=== PATIENT | female | born 1930 | race Caucasian/White ===

== ENCOUNTER 2018-09-20 16:38 | Inpatient (IN) | payer BC ==
[~2018-09-20] VITALS: Ht 162.6 cm; Wt 73.6 kg
[2018-09-20 16:43] VITALS: BP_SYST 140
--- NOTE | 2018-09-20 16:50 | NUR ---
Placed in room 01 . Placed on radiation monitor, blood pressure machine and pulse oximeter. To gown for exam. Side rails up.
--- NOTE | 2018-09-20 16:55 | NUR ---
Pt brought by family member, [email or web address], pt was sent from PCP for abnormal labs(BNP) , pt c/o lightheadache, skin pink and warm, cap refill <3, respirations even and unlabored, pr denies chest pain or other symptoms. Addendum: 09/20/18 at 1725 by [email or web address] Amendment undone in EDM - 09/20/18 at 1727 by [email or web address] Per paramedics pt had low BP prior to arrival and one episode of confusion, BP 137/58 at this time,pt KokoOx3, at this time.
[2018-09-20] MEDS ORDERED: LEVO125T8 PO (17:07)
[2018-09-20] MEDS ORDERED: LISI-209 PO (17:07)
[2018-09-20] MEDS ORDERED: FURO-150 PO (17:07)
[2018-09-20] MEDS ORDERED: RIVA20TA PO (17:07)
[2018-09-20] MEDS ORDERED: AMI200 PO (17:07)
[2018-09-20] MEDS ORDERED: POTA10TA15 PO (17:07)
--- NOTE | 2018-09-20 17:08 | NUR ---
ER Dr. Bonilla at bedside examining patient.
--- NOTE | 2018-09-20 17:08 | NUR ---
Medication reconciliation completed based upon list of medciation provided by facility.
[2018-09-20 17:17] LABS: EOSINOPHILS % (AUTO) 0.9 % (0.0-4.0); HEMATOCRIT 35.7 % (36-48); HEMOGLOBIN 12.4 g/dL (12.0-16.0); LYMPHOCYTES # (AUTO) 0.7 K/uL (1.0-5.5); LYMPHOCYTES % (AUTO) 15.1 % (20.5-51.5); MEAN CORPUSCULAR HEMOGLOBIN 34 pg (27-31); MEAN CORPUSCULAR HGB CONC 35 % (32-36); MEAN CORPUSCULAR VOLUME 97 fL (79.0-98.0); MONOCYTES # (AUTO) 0.7 K/uL (0.0-1.0); MONOCYTES % (AUTO) 14.4 % (1.7-9.3); NEUTROPHILS # (AUTO) 3.1 K/uL (1.8-7.7); NEUTROPHILS % (AUTO) 68.6 % (40.0-70.0); PLATELET COUNT (AUTO) 234 K/uL (130-430); RED BLOOD CELL COUNT(AUTO) 3.69 MIL/uL (4.2-6.2); RED CELL DISTRIBUTION WIDTH 14.8 % (9.0-15.0); WHITE BLOOD COUNT (AUTO) 4.6 K/uL (4.8-10.8)
--- NOTE | 2018-09-20 17:24 | NUR ---
Pt on stable condiition, family at bedside.
[2018-09-20 17:29] LABS: ANION GAP 7 (5-15); CALCIUM 8.4 mg/dL (8.4-11.0); CHLORIDE 98 mmol/L (98-107); CREATININE 0.96 mg/dL (0.55-1.30); GLUCOSE 105 mg/dL (70-99); POTASSIUM 5.3 mmol/L (3.5-5.1); SODIUM SERUM 131 mmol/L (136-145); UREA NITROGEN, BLOOD 27 mg/dL (8-21)
[2018-09-20 17:39] LABS: ALANINE AMINOTRANSFERASE 11 U/L (12-78); ALBUMIN 3.4 g/dL (3.4-4.8); ASPARTATE AMINOTRANSFERASE 15 U/L (10-37); TOTAL BILIRUBIN 0.5 mg/dL (0.0-1.0)
[2018-09-20] MEDS ORDERED: ATROPINE SULFATE 0.5 MG/5 ML SYRINGE IVP ONE (17:45)
[2018-09-20] MEDS ORDERED: ATROPINE SULFATE 1 MG/10 ML SYRINGE IVP ONE (17:51)
--- NOTE | 2018-09-20 18:00 | NUR ---
Pt A&Ox4, no s/s of distress , will continue to monitor.
--- NOTE | 2018-09-20 18:32 | NUR ---
Pt off the unit for CT
--- NOTE | 2018-09-20 18:45 | NUR ---
Pt rerurned from CT on stable condition
--- NOTE | 2018-09-20 18:54 | NUR ---
Dr Bonilla consulting Dr Diana at this time via phone.
--- NOTE | 2018-09-20 18:55 | NUR ---
Pt ambulating to the bathroom on stable condition
--- NOTE | 2018-09-20 19:00 | NUR ---
Pt returned to bed on stable condition, no s/s of distress
--- NOTE | 2018-09-20 19:08 | NUR ---
ADMISSION: The patient, ALEIDA MARQUEZ, 88 y/o, F admitted by KAYLEE DELCID MD, was given written information regarding hospital policies, unit procedures and contact persons.
--- NOTE | 2018-09-20 19:10 | NUR ---
Patient will be admitted to care of Dr Loo . Admitted to Tele unit. Will go to room 114A. Belongings list completed. Summary report printed. Report will be given at bedside.
[2018-09-20 19:15] VITALS: BP_SYST 145
[2018-09-20 20:00] VITALS: BP_SYST 136
--- NOTE | 2018-09-20 20:21 | NUR ---
RN ROUNDS: PT RESTING IN BED IN NO ACUTE DISTRESS. PT BROUGHT TURKEY SANDWICH, JELLO, CHICKEN BROTH, AND TEA PER REQUEST. PT DENIES PAIN OR DISCOMFORT. BREATHING IS UNLABORED TO ROOM AIR. SAFETY PRECAUTIONS ARE IN PLACE: BED IS LOCKED IN LOWEST POSITION, CALL LIGHT IS WITH PT, SIDE RAILS UP X2, BED ALARM ON. WILL MONITOR.
--- NOTE | 2018-09-20 20:52 | NUR ---
Sylvia from [facility] facility called for update on patient. Informed her of diagnosis and attending physician name.
[2018-09-20] MEDS ORDERED: MORPHINE 4 MG/ML INJ. SYRINGE IVP PRN (22:15)
[2018-09-20] MEDS ORDERED: MORPHINE 2 MG/ML INJ. SYRINGE IVP PRN (22:15)
[2018-09-20] MEDS ORDERED: ACETAMINOPHEN 325 MG TABLET PO PRN (22:15)
--- NOTE | 2018-09-20 22:55 | NUR ---
RESTING PT IS RESTING IN BED, NO S/S OF ACUTE DISTRESS, BREATHING IS UNLABORED TO ROOM AIR. NO SIGNS OF PAIN OR DISCOMFORT. PT APPEARS COMFORTABLE. SAFETY PRECAUTIONS ARE IN PLACE: BED IS LOCKED IN LOWEST POSITION, CALL LIGHT IS WITH PT, SIDE RAILS UP X2, BED ALARM ON. WILL MONITOR.
--- NOTE | 2018-09-20 23:56 | NUR ---
AMBULATED TO RESTROOM PT AMBULATED TO RESTROOM WITH NURSE ASSIST. PT'S GAIT NOTED TO BE STEADY. PT TOLERATED ACTIVITY WELL AND RETURNED TO BED. PT REPOSITIONED HERSELF FOR COMFORT. PILLOW SUPPORT IS IN PLACE. PT DENIES PAIN OR DISCOMFORT. BREATHING IS UNLABORED TO ROOM AIR, NO SOB. PT DENIES FURTHER NEEDS AT THIS TIME. SAFETY PRECAUTIONS REMAIN IN PLACE. WILL MONITOR.
[2018-09-21] VITALS (7 sets, daily range): BP systolic 110–125
--- NOTE | 2018-09-21 02:14 | NUR ---
RN ROUNDS: PT ASSISTED TO RESTROOM, GAIT WAS STEADY. PT RETURNED TO BED AND WAS ABLE TO REPOSITION HERSELF FOR COMFORT. PT IS SITTING UP IN BED AND READING AT THIS TIME. NO S/S OF ACUTE DISTRESS, BREATHING IS UNLABORED TO ROOM AIR. PT DENIES PAIN OR DISCOMFORT. SAFETY PRECAUTIONS OBSERVED. WILL MONITOR.
--- NOTE | 2018-09-21 04:40 | NUR ---
ASSISTED PT TO RESTROOM. PT HAD STEADY GAIT. PT RETURNED TO BED, ASSISTED TO ELEVATE HER FEET WITH A PILLOW. NO S/S OF DISTRESS. BREATHING IS EVEN AND EFFORTLESS. SAFETY PRECAUTIONS MAINTAINED, CALL LIGHT IS WITH PT. WILL MONITOR.
--- NOTE | 2018-09-21 05:43 | NUR ---
ROUNDS DR. DELCID AT NURSES STATION. PT SEEN AND EXAMINED. POC DISCUSSED. NEW ORDERS RECEIVED. WILL CARRY OUT.
[2018-09-21] MEDS: LEVOTHYROXINE SODIUM 0.125 MG TABLET PO SCH (06:15)
[2018-09-21] MEDS: NORMAL SALINE 5 ML DISP.SYRIN IVF SCH ×3 (06:15→21:14)
--- NOTE | 2018-09-21 06:29 | NUR ---
CLOSING NOTE PT RESTING IN BED, BREATHING IS UNLABORED TO ROOM AIR, NO SOB. NO S/S OF ACUTE DISTRESS. PT DENIES PAIN OR DISCOMFORT. ALL NEEDS MET DURING SHIFT. SAFETY MAINTAINED. WILL CONTINUE TO MONITOR UNTIL PT CARE IS ENDORSED TO DAY SHIFT RN.
--- NOTE | 2018-09-21 06:46 | NUR ---
CONSULT PSYCH DEPRESSION DR OWENS,SAID [phone] S/W MEL[facility] EXCHANGE
[2018-09-21 07:12] LABS: ANION GAP 7 (5-15); CALCIUM 7.5 mg/dL (8.4-11.0); CHLORIDE 102 mmol/L (98-107); CREATININE 0.88 mg/dL (0.55-1.30); GLUCOSE 85 mg/dL (70-99); POTASSIUM 4.2 mmol/L (3.5-5.1); SODIUM SERUM 133 mmol/L (136-145); UREA NITROGEN, BLOOD 22 mg/dL (8-21)
[2018-09-21 07:27] LABS: ALANINE AMINOTRANSFERASE 10 U/L (12-78); ALBUMIN 2.9 g/dL (3.4-4.8); ASPARTATE AMINOTRANSFERASE 16 U/L (10-37); TOTAL BILIRUBIN 0.6 mg/dL (0.0-1.0)
--- NOTE | 2018-09-21 07:30 | NUR ---
Opening notes Patient resting in bed at this time, A/Ox4, patient complained of forgetfulness. No complaints of pain. No SOB. no complaints of light headedness. IV site patent, and intact. No bleeding noted. On safety and aspiration precautions. HOB kept elevated, bed in lowest position, bed alarm on, 3 side rails up. Patient in stable condition. Will continue to monitor.
[2018-09-21 07:32] LABS: BASOPHILS # (AUTO) 0.1 K/uL (0.0-0.2); BASOPHILS % (AUTO) 1.6 % (0.0-2.0); EOSINOPHILS # (AUTO) 0.1 K/uL (0.0-0.4); EOSINOPHILS % (AUTO) 2.3 % (0.0-4.0); HEMATOCRIT 32.4 % (36-48); HEMOGLOBIN 11.3 g/dL (12.0-16.0); LYMPHOCYTES # (AUTO) 0.6 K/uL (1.0-5.5); LYMPHOCYTES % (AUTO) 15.7 % (20.5-51.5); MEAN CORPUSCULAR HEMOGLOBIN 34 pg (27-31); MEAN CORPUSCULAR HGB CONC 35 % (32-36); MEAN CORPUSCULAR VOLUME 96 fL (79.0-98.0); MONOCYTES # (AUTO) 0.7 K/uL (0.0-1.0); MONOCYTES % (AUTO) 16.7 % (1.7-9.3); NEUTROPHILS # (AUTO) 2.5 K/uL (1.8-7.7); NEUTROPHILS % (AUTO) 63.7 % (40.0-70.0); PLATELET COUNT (AUTO) 202 K/uL (130-430); RED BLOOD CELL COUNT(AUTO) 3.36 MIL/uL (4.2-6.2); RED CELL DISTRIBUTION WIDTH 14.7 % (9.0-15.0)
[2018-09-21] MEDS: LISINOPRIL 5 MG TABLET PO SCH (09:12)
[2018-09-21] MEDS: RIVAROXABAN 10 MG TABLET PO SCH (09:14)
[2018-09-21] MEDS: FUROSEMIDE 20 MG TABLET PO SCH ×3 (09:15→21:02)
--- NOTE | 2018-09-21 09:50 | NUR ---
CONSULT CARDIOLOGY CHF DR ROBERTSON [phone] S/W [facility] OFFICE
--- NOTE | 2018-09-21 09:50 | NUR ---
MD rounds Patient seen by Dr. craft, daughter at bedside. Plan of care discussed with patient and family member by MD.
--- NOTE | 2018-09-21 10:45 | NUR ---
Ambulate Patient ambulated from the bed to the restroom in stable condition. Hygiene tools provided. Patient able to perform hygiene independently.
--- NOTE | 2018-09-21 12:45 | NUR ---
Lunch Patient sitting up in bed, eating lunch, tolerating well. No nausea, no vomiting noted. No complaints of dizziness. Patient denies pain.
--- NOTE | 2018-09-21 13:00 | NUR ---
Heart rate Patients heart rate 35, paged DR. Diana awaiting call back.
--- NOTE | 2018-09-21 13:45 | NUR ---
SS Note/Depression: GOURMET COFFEE ATTENDANT met with patient at bedside for assessment and by order of "depression". Demographic information updated with NOK: Taylor Tijerina [phone] and pt's phone number is [phone]. Pt states she currently lives at the [facility] since May of 2018 from her own home in [place]. Pt states she "likes it at the [facility]" but feels that she has not adjusted well at her new residence. Pt states, lately, she has been feeling more "stressed, can't remember things and disoriented". Pt states she feels overwhelmed and feels that "everything is happening at the same time" in terms of the of her daughter in May2018 and with the move to the assisted living. Pt states the [facility] is providing her with a therapist (Herbie) who she has seen three times and finds him "helpful". Pt states she is not being followed by a psychiatrist and she is not on any psych medication. 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 Pt states she does not have history of suicidal ideation, attempt, homicidal ideation or any mental health inpt admissions. Pt states she feels depressed and anxious now and states she has insomnia sometimes. Pt states she finds support from her children and has a good relationship with her family. GOURMET COFFEE ATTENDANT provided pt with Outpatient mental health and Senior lifestyle booklet. SS will remain available when needed.
--- NOTE | 2018-09-21 14:00 | NUR ---
Dr. Sparkle Villagran called back, made aware of patients heart rate. MD to come see patient.
--- NOTE | 2018-09-21 15:45 | NUR ---
Rounds Patient ambulated to the restroom and back to bed with steady gait. No complaints of pain at this time. No dizziness. No nausea, no vomiting. Safety precautions reinforced, bed in lowest position, bed alarm on. HOB kept elevated, Call light within reach.
--- NOTE | 2018-09-21 17:00 | NUR ---
Rounds Offered to assist patient to the bathroom. Patient ambulated with steady gait to the restroom and back to bed. No complaints of dizziness noted.
--- NOTE | 2018-09-21 18:41 | NUR ---
Closing notes Patient resting in bed at this time, No complaints of pain. No SOB. no complaints of light headedness. IV site patent, and intact. No bleeding noted. On safety and aspiration precautions. HOB kept elevated, bed in lowest position, bed alarm on, 3 side rails up. daughter at bedside. Patient in stable condition. All needs met.
--- NOTE | 2018-09-21 20:15 | NUR ---
DR SARGENT PAGED THE PATIENT HR IS 42/MIN AND IS COMPLAINING OF GASTRIC DISCOMFORT, AWAITING RESPONSE
--- NOTE | 2018-09-21 20:18 | NUR ---
Nadira Saucedo s/meena Forrester
[2018-09-21] MEDS: MIRTAZAPINE 15 MG TABLET PO SCH (21:03)
--- NOTE | 2018-09-21 21:19 | NUR ---
RT IN AND WILL PUT THE PATIENT ON CPAP. dR Calixto CALLED BACK AND INFORMED ABOUIT THE PATIENT,S HR,
--- NOTE | 2018-09-22 00:40 | NUR ---
AWAKE. OOB, AMBULATED TO BATHROOM WITH 1 NURSE ASSIST TO URINATE. SELF YULISSA-CARE. BACK TO BED WITHOUT INCIDENCE.
[2018-09-22 01:58] VITALS: BP_SYST 141
--- NOTE | 2018-09-22 03:00 | NUR ---
SOUNDLY ASLEEP. TURNS SELF WELL. HR SUSTAINING IN THE LOW 30'S. AWAKENED. SYMPTOMATIC. DENIES DISTRESS. HR WENT UP. WENT BACK TO SLEEP.
--- NOTE | 2018-09-22 06:30 | NUR ---
SLEPT FOR LONG PERIODS OF TIME. WT 162 LBS. CPAP REMOVED. AMBULATED TO WITH ASSIST TO URINATE. SELF YULISSA CARE DONE. NO COMPLAINTS OFFERED AT THIS TIME. REMAINS IN GUARDED CONDITION.
[2018-09-22] MEDS: LEVOTHYROXINE SODIUM 0.125 MG TABLET PO SCH (06:43)
[2018-09-22] MEDS: NORMAL SALINE 5 ML DISP.SYRIN IVF SCH ×3 (06:43→20:30)
[2018-09-22 07:53] LABS: ANION GAP 7 (5-15); CALCIUM 7.9 mg/dL (8.4-11.0); CHLORIDE 102 mmol/L (98-107); GLUCOSE 84 mg/dL (70-99); POTASSIUM 4.6 mmol/L (3.5-5.1); SODIUM SERUM 137 mmol/L (136-145); UREA NITROGEN, BLOOD 20 mg/dL (8-21)
[2018-09-22 07:55] VITALS: BP_SYST 149
--- NOTE | 2018-09-22 07:55 | NUR ---
am notes received pt in bed a/ox4. res even and unlabored. vitals stable , not in res distress. safety and fall precautions maintained . sr on tele. poc discussed with pt verbalized under standing.needs attended. dr lozoya here informed abouut pt's bradycardia hr in 30 ies and pause 2.21 sec this morning around 0610 informed by briseyda ekg monitor . poc discussed with pt. verbalized understanding .will continue to monitor.
[2018-09-22] MEDS: FUROSEMIDE 20 MG TABLET PO SCH ×3 (09:10→22:24)
[2018-09-22] MEDS: LISINOPRIL 5 MG TABLET PO SCH (09:10)
[2018-09-22] MEDS: RIVAROXABAN 10 MG TABLET PO SCH (09:13)
--- NOTE | 2018-09-22 09:15 | NUR ---
md visit seen by dr craft. due meds given as ordered. pt resting comfortably. no s/s of distress noted will continue to monitor
--- NOTE | 2018-09-22 10:18 | NUR ---
Nutrition Update Jone Scale 16 noted. Pt admitted for CHF, bradycardia. Diet: cardiac BMI: 27.8 kg/m2 RD to follow per nutrition care standards.
--- NOTE | 2018-09-22 10:36 | NUR ---
physical therapy pt walked with pt . hr increased to 52-54. denies any chest pain or orther discomfort. not in acute distress. will continue to monitor
[2018-09-22 12:53] VITALS: BP_SYST 123
--- NOTE | 2018-09-22 13:36 | NUR ---
rounds pt stable notin acute distress. denies any pain or orther discomfort.h r 42 on tele. will continue to monitor
--- NOTE | 2018-09-22 16:19 | NUR ---
Dietitian Recommendations * Recommend continuing cardiac diet LP, RD Please refer to Nutrition Assessment for details. Addendum: 09/22/18 at [address] Amended: Links added.
--- NOTE | 2018-09-22 16:30 | NUR ---
rounds pt stable not in acute distress. denies chest pain or orther discomfort.daughter at bed side.
[2018-09-22 17:35] VITALS: BP_SYST 148
--- NOTE | 2018-09-22 18:38 | NUR ---
closing notes pt stable resting comfortably. no acute distress noted hr on tele 42 safety and fall precautions maintained. will endorse to night nurse
--- NOTE | 2018-09-22 19:04 | NUR ---
Follow Consult made to Dr. Mathur, s/w Leonila re: Depression, ordered by Dr. Coronado.
--- NOTE | 2018-09-22 19:25 | NUR ---
Initial Note Received patient awake, alert and oriented. No SOB noted. Denies any pain or n/v at this time. On O2 at 2L/min via NC. CHENEGA with hearing aid. Saline lock. Skin intact. No peripheral edema noted. Assisted patient to the bathroom and back to bed with steady gait. Oral care was done by patient. Care and monitoring will be provided per protocol. Call light within reach. Bed alarm on and at lowest position at all times. Repositions himself. Kept warm and comfortable. HR was 41bpm at rest and 62 bpm while ambulating to the bathroom.
[2018-09-22 20:00] VITALS: BP_SYST 104
[2018-09-22] MEDS: MIRTAZAPINE 15 MG TABLET PO SCH (20:28)
--- NOTE | 2018-09-22 20:30 | NUR ---
RN Note Due med given, tolerated well. Held diuretic for now and will give it a later time. Last dose was given at 1700. No other complaints.
--- NOTE | 2018-09-22 21:00 | NUR ---
Ambulation Patient ambulated with LINE UP WORKER. Steady gait and no SOB noted. HR was at 41-46 bpm while ambulating. Patient went to the bathroom and back in bed. HR post ambulation was 43 bpm. No complaints of dizziness, lightheadedness, SOB or weakness. Kept warm and comfortable. Will continue to monitor.
--- NOTE | 2018-09-22 22:30 | NUR ---
RN Note Patient arousable with a nosepiece CPAP. Diuretic given as well as medication for mild pain as requested. Will continue to monitor. Repositions self. Kept warm and comfortable.
[2018-09-22 23:56] VITALS: BP_SYST 128
--- NOTE | 2018-09-23 | NUR ---
RN Note Patient can't sleep with the CPAP nosepiece on. Notified RT and placed patient back on O2 at 2L/min via NC. No complain of SOB at this time. Will continue to monitor. HR stays at 40's bpm.
--- NOTE | 2018-09-23 01:50 | NUR ---
IV out Patient awake and confused. Removed his gown,blankets and pulled out his IV. Reoriented to time and place. New IV line placed on right hand G22 and covered it with kerlix. Resumed IVF. Repositioned. Kept warm and comfortable. Addendum: 09/23/18 at 0231 by Jordan Elmore RN wrong patient
--- NOTE | 2018-09-23 02:00 | NUR ---
RN Note Patient awake and alert. Assisted to the bathroom and back to bed with steady gait. No other complaints. Placed patient back with O2 at 2L/min via NC. Needs attended.
--- NOTE | 2018-09-23 03:00 | NUR ---
RN Note Patient sleeping at this time. No SOB or grimacing noted.
[2018-09-23] MEDS: LEVOTHYROXINE SODIUM 0.125 MG TABLET PO SCH (05:52)
[2018-09-23] MEDS: NORMAL SALINE 5 ML DISP.SYRIN IVF SCH (05:55)
--- NOTE | 2018-09-23 06:05 | NUR ---
End Note 114a Afebrile. VS stable. HR at rest 42bpm. No complain of SOB or n/v throughout the night. On O2 at 2L/min via NC. Used own CPAP for few hours. Medicated for mild pain once all night. Ambulates with assist and steady gait. Saline lock. Care and monitoring provided per protocol. Call light within reach. Bed alarm on and at lowest position at all times. Needs attended. Kept warm and comfortable. Sinus zahra on a monitor.
--- NOTE | 2018-09-23 07:45 | NUR ---
NUCLEAR MED: SPOKE WITH , MRI RESULTS READ OVER THE TELEPHONE, ORDER TO CANCEL SCHEDULED BONE SCAN, WILL CON'T WITH PLAN OF CARE.
[2018-09-23 08:00] VITALS: BP_SYST 175
--- NOTE | 2018-09-23 08:00 | NUR ---
ASSUMPTION OF CARE: RECEIVED PT A/A/OX4, DX:INADEQUATE PERFUSION, R/T CHF, BRADYCARDIA, HR=45 BPM, ASYMPTOMATIC, BP SLIGHTLY RKCBZLIB=715/67, WILL MEDICATE WITH MORNING MEDS, PER ORDERED BY Adelaida, AFEBRILE, BREATH SOUNDS ARE CLEAR, BREATHING UNLABORED, O2 SAT=94% ON 2L VIA N/C, COLOR IS GOOD, SKIN WARM, DRY TO TOUCH, NO S/S OF DISTRESS, IV SITE REMAINS INTACT, PATENT, NO REDNESS OR SWELLING, ORIENTED TO UNIT, CALL LIGHT PLACED WITHIN REACH, WILL CON'T TO MONITOR AND ASSESS.
[2018-09-23] MEDS: FUROSEMIDE 20 MG TABLET PO SCH (08:36)
[2018-09-23] MEDS: LISINOPRIL 5 MG TABLET PO SCH (08:37)
[2018-09-23] MEDS: RIVAROXABAN 10 MG TABLET PO SCH (08:37)
--- NOTE | 2018-09-23 08:45 | NUR ---
MANUFACTURING MANAGER: MORNING MEDS GIVEN, PER ORDERED BY Adelaida, TOLERATED WELL, REORIENTED TO CALL LIGHT, PLACED WITHIN REACH, WILL CON'T TO MONITOR AND ASSESS.
--- NOTE | 2018-09-23 10:00 | NUR ---
VISIT: AT BEDSIDE FOR ASSESSMENT OF PT, NEW ORDERS GIVEN, WILL CON'T WITH POC.
[2018-09-23] MEDS ORDERED: AMIO100T4 PO (10:51)
[2018-09-23 12:41] VITALS: BP_SYST 113
[2018-09-23 13:16] VITALS: BP_SYST 128
--- NOTE | 2018-09-23 14:55 | NUR ---
DISCHARGE: PT HAS ORDER FOR DISCHARGE TO HOME, INSTRUCTIONS GIVEN WITH PRESCRIPTION AND APPT DATE AND TIME, PT AND FAMILY VERBALIZED UNDERSTANDING, ALL BELONGINGS ACCOUNTED FOR AND RETURNED TO PT, IV DISCONTINUE, PRESSURE DRSG APPLIED, PT LEFT WITH DAUGHTER PAVEL VIA WHEELCHAIR, TRANSPORTED BACK TO [facility] VIA PRIVATE AUTO, IN STABLE CONDITION.
[2018-09-23] MEDS ORDERED: MIRTAZAPINE 15 MG TABLET PO SCH (21:00)
--- NOTE | 2018-09-30 13:49 | NUR ---
Discharge Follow Up Phone Call QUANTITATIVE SOFTWARE ENGINEER phoned patient, . Patient stated she was at her parking meter attendant's office for her follow up appointment. She did not want a call back at a later date or time. She stated she was getting good care and had no questions or concerns.
== END 2018-09-23 14:55 | disposition home or self-care (01) | DRG 308 ==
LOC: SED 16:38 → STU 18:38
PROVIDERS: ADMIT Internal Medicine Hospice and Palliative Medicine; ATTEND Internal Medicine
DX: R00.1 Bradycardia, unspecified (principal); I50.43 Acute on chronic combined systolic (congestive) and diastolic (congestive) heart failure; E87.1 Hypo-osmolality and hyponatremia; I11.0 Hypertensive heart disease with heart failure; K21.9 Gastro-esophageal reflux disease without esophagitis; E03.9 Hypothyroidism, unspecified; E87.5 Hyperkalemia; F32.9 Major depressive disorder, single episode, unspecified; G47.30 Sleep apnea, unspecified; I48.91 Unspecified atrial fibrillation; R45.850 Homicidal ideations; I27.20 Pulmonary hypertension, unspecified; I36.1 Nonrheumatic tricuspid (valve) insufficiency; T46.2X5A Adverse effect of other antidysrhythmic drugs, initial encounter; Y92.89 Other specified places as the place of occurrence of the external cause; Z88.2 Allergy status to sulfonamides; Z79.899 Other long term (current) drug therapy; Z79.01 Long term (current) use of anticoagulants
CPT/HCPCS: 36415; 70450-TC; 71045; 80048; 80053; 82550-TC; 83880; 84443-TC; 84484; 85025; 93005; 93306; 94660; 94760; 96374; 97116-GP; 97530-GP; 99291; G0378; J0461

== ENCOUNTER 2019-10-30 07:08 | Inpatient (IN) | payer BC, SELFPAY ==
[~2019-10-30] VITALS: Ht 162.6 cm; Wt 78.0 kg
[~2019-10-30 07:08] MED LIST: AMIO100T4 PO; FURO-150 PO; LEVO125T8 PO; LISI-209 PO; POTA10TA15 PO; RIVA20TA PO
[2019-10-30] MEDS ORDERED: MIDAZOLAM HCL 5 MG/5 ML VIAL IVP ONE (09:26)
[2019-10-30] MEDS ORDERED: PROPOFOL 200MG/ 20ML VIAL (DIPRIVAN) IV ONE (09:26)
[2019-10-30] MEDS ORDERED: LIDOCAINE 2%, 20 ML MDV INJ ONE (09:26)
[2019-10-30] MEDS ORDERED: fentaNYL CITRATE/PF 100 MCG/2 ML AMP IVP ONE (09:26)
[2019-10-30] MEDS ORDERED: BUPIVACAINE /EPINEPHRINE/PF 0.5% 30 ML VIAL INJ ONE (09:26)
[2019-10-30] MEDS ORDERED: CEFAZOLIN 1 GM IVPB PREMIX 50 ML IV ONE (09:26)
[2019-10-30] MEDS ORDERED: HYDROmorphone 1 MG INJ. 1 MG/ML AMPUL IVP PRN ×2 (10:00)
[2019-10-30] MEDS ORDERED: ONDANSETRON HCL 4 MG/2 ML VIAL IVP PRN (10:00)
[2019-10-30] MEDS ORDERED: LR 1,000 ML IV SCH (10:00)
[2019-10-30] MEDS ORDERED: MEPERIDINE HCL/PF 25 MG/ML DISP.SYRIN IVP PRN (10:00)
[2019-10-30] MEDS ORDERED: HYDROcodone/ACETAMIN 5-325 MG TAB (NORCO/ VICODIN) PO PRN ×2 (10:30)
[2019-10-30] MEDS ORDERED: D5/0.45 NS 1,000 ML IV SCH (10:30)
[2019-10-30] MEDS ORDERED: NALOXONE HCL 0.4 MG/ML AMP (NARCAN) IVP PRN ×2 (10:30)
[2019-10-30 11:30] VITALS: BP_SYST 155
== END 2019-10-30 12:20 | disposition home or self-care (01) | DRG 572 ==
LOC: SMU 07:08 → EDSTATUS 09:30
PROVIDERS: ADMIT Colon & Rectal Surgery; ATTEND Colon & Rectal Surgery
PROC: 0JRG07Z Replacement of Right Lower Arm Subcutaneous Tissue and Fascia with Autologous Tissue Substitute, Open Approach (ICD-10-PCS; 2019-10-30)
PROC: 0JBG0ZZ Excision of Right Lower Arm Subcutaneous Tissue and Fascia, Open Approach (ICD-10-PCS; principal; 2019-10-30 09:30)
DX: C43.61 Malignant melanoma of right upper limb, including shoulder (principal); Z20.828 Contact with and (suspected) exposure to other viral communicable diseases
CPT/HCPCS: 36415; 87081; 88305; J0690; J2001; J2250; J2704; J3010; J3490; J7120

== ENCOUNTER 2021-01-04 21:54 | Emergency (ER) | payer BC, SELFPAY ==
[~2021-01-04] VITALS: Ht 162.6 cm; Wt 75.3 kg
--- NOTE | 2021-01-04 21:54 | NUR ---
Placed in room 7. To gown for exam. Side rails up. Report given to self. received patient to Er w/ c/o bruising, redness, and bleeding into right eye x1 day. denies any trauma. No visual disturbances noted per patient. Introduced self to patient, positioned for comfort. continue to monitor.
[2021-01-04 22:23] VITALS: BP_SYST 136
--- NOTE | 2021-01-04 22:50 | NUR ---
ER Dr. pastrana at bedside examining patient.
--- NOTE | 2021-01-04 23:09 | NUR ---
VISUAL ACUITY DONE
[2021-01-04 23:34] LABS: BASOPHILS # (AUTO) 0.1 K/uL (0.0-0.2); BASOPHILS % (AUTO) 1.1 % (0.0-2.0); EOSINOPHILS # (AUTO) 0.1 K/uL (0.0-0.4); EOSINOPHILS % (AUTO) 1.6 % (0.0-4.0); HEMATOCRIT 34.6 % (36-48); HEMOGLOBIN 11.7 g/dL (12.0-16.0); LYMPHOCYTES # (AUTO) 1.2 K/uL (1.0-5.5); LYMPHOCYTES % (AUTO) 22.7 % (20.5-51.5); MEAN CORPUSCULAR HEMOGLOBIN 31 pg (27-31); MEAN CORPUSCULAR HGB CONC 34 % (32-36); MEAN CORPUSCULAR VOLUME 92 fL (79.0-98.0); MONOCYTES # (AUTO) 0.6 K/uL (0.0-1.0); MONOCYTES % (AUTO) 12.1 % (1.7-9.3); NEUTROPHILS # (AUTO) 3.2 K/uL (1.8-7.7); NEUTROPHILS % (AUTO) 62.5 % (40.0-70.0); PLATELET COUNT (AUTO) 284 K/uL (130-430); RED BLOOD CELL COUNT(AUTO) 3.75 MIL/uL (4.2-6.2); RED CELL DISTRIBUTION WIDTH 12.7 % (9.0-15.0); WHITE BLOOD COUNT (AUTO) 5.2 K/uL (4.8-10.8)
[2021-01-05 00:04] LABS: INR 1.3 (0.8-1.2); PROTHROMBIN TIME 13.3 SECS (9.5-12.5)
--- NOTE | 2021-01-05 01:00 | NUR ---
Patient resting quietly. No acute distress noted. Vital signs within normal range. Received call from Sol nurse at the location patient resides ([phone]) who informed that a list of her current medication is requested by MD Chowdhury. Sol stated that she will fax medications sheets.
--- NOTE | 2021-01-05 01:21 | NUR ---
Patient medication sheet arrived, information given to MD Chowdhury.
--- NOTE | 2021-01-05 01:30 | NUR ---
Patient given written and verbal discharge instructions and verbalizes understanding. ER MD discussed with patient the results and treatment provided. Patient in stable condition. ID arm band removed. Rx of given. Patient educated on pain management and to follow up with PMD. Pain Scale 0. Discharge information relayed to Sol at the location were patient resides. Opportunity for questions provided and answered. Medication side effect fact sheet provided. Patient sent home in [facility] (Dinesh Maximum [id number], Arvind Ruby)
[2021-01-05 01:35] VITALS: BP_SYST 147
[2021-01-05] MEDS ORDERED: SACU1TAB PO (01:50)
[2021-01-05] MEDS ORDERED: ESZO2TAB22 PO (01:55)
[2021-01-05] MEDS ORDERED: CITA10TA9 PO (01:55)
[2021-01-05] MEDS ORDERED: [UNRECOGNIZED DRUG - OTHER] PO (01:55)
[2021-01-05] MEDS ORDERED: ALEN10TA25 PO (01:55)
[2021-01-05] MEDS ORDERED: DULO20CA PO (01:55)
[2021-01-05] MEDS ORDERED: [UNRECOGNIZED DRUG - OTHER] (01:55)
== END 2021-01-05 01:35 | disposition home or self-care (01) ==
LOC: SED 21:54
DX: H11.31 Conjunctival hemorrhage, right eye (principal)
CPT/HCPCS: 36415; 85025; 85610-TC; 85730-TC; 99283